=== PATIENT | male | born 1980 | race Hispanic/Latino ===

== ENCOUNTER 2021-05-16 11:52 | Emergency (ER) | payer OTHER ==
[2021-05-16 12:07] VITALS: BP 162/100
[2021-05-16] MEDS ORDERED: ASPIRIN 325 MG TAB PO ONE (12:07)
[2021-05-16] MEDS ORDERED: SODIUM CHLORIDE 0.9% 1000 ML 1,000 ML IV ONE (12:33)
--- NOTE | 2021-05-16 12:40 | Emergency Department Report ---
ED Abdominal Pain HPI - General Chief Complaint: Chest Pain Stated Complaint: ABD,CHEST,BACK PAIN Time Seen by Provider: 05/16/21 12:22 Source: patient Mode of arrival: Ambulatory Limitations: No Limitations - History of Present Illness Initial Comments: 40-year-old male with a past medical history of chronic back pain currently on Subutex presents to the hospital with complaints of constipation x2 weeks and abdominal pain x3 weeks. Patient reports that pain impression abdomen is currently chest discomfort the last 3 days. Pain is moderate and worse with palpation. No alleviating factors patient has been drinking plenty of water and trying a variety of [id number] laxatives without significant improvement. He has had liquid stool output without significant relief. No reports of nausea, vomiting, or fever. Previous history of right surgical hernia repair. Patient has noticed a small swelling to umbilicus area x1 month. He denies a history of hypertension Patient is seen by infectious disease doctor Dr. 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 Recurrent buttock abscess with fistula ED Physical Exam - General Limitations: No Limitations - Other Other exam information: General: No acute distress Head: Atraumatic Eyes: normal appearance ENT: Moist mucous membranes Neck: Normal appearance, no midline tenderness Chest: Clear to auscultation bilaterally CV: Regular rate and rhythm Abdomen: Soft, normal bowel sounds, reducible small supraumbilical hernia, generalized tenderness greatest in lower abdomen. No rebound or guard Back: Diffuse lumbar tenderness, pain with movement Extremity: Normal inspection, full range of motion Neuro: Alert O x 3, no facial asymmetry, speech clear, no gross motor sensory deficit Psych: Appropriate behavior Skin: No rash ED Course Vital Signs 05/16/21 12:05 Temperature 98.5 F Pulse Rate 81 Respiratory 20 Rate Blood Pressure 162/100 [Right] O2 Sat by Pulse 100 Oximetry - Reevaluation(s) Reevaluation #1: 05/16/21 13:39 Delay in patient's work-up and evaluation. He has refused lab stating that he had normal labs performed by Dr. Jang office. He was informed that we do not have access to Dr. Barreto's labs. He was informed he can attempt to have the results faxed to us for review otherwise his work-up is currently on hold 05/16/21 14:24 at this time I still have not received lab results form his doctor. I canceled IV contrast ct and ordered noncontrast ct at this time since we are unable to verify pt's renal function ED Medical Decision Making - EKG Data -: EKG Interpreted by Me EKG shows normal: sinus rhythm, ST-T waves (Early repole no ST elevation) Rate: normal (67) - EKG Data When compared to previous EKG there are: previous EKG unavailable - Radiology Data Radiology results: report reviewed CT ABDOMEN AND PELVIS WITHOUT CONTRAST INDICATION / CLINICAL INFORMATION: abd pain, no bowel movement. TECHNIQUE: Axial CT images were obtained through the abdomen and pelvis without IV contrast. All CT scans at this location are performed using CT dose reduction for ALARA by means of automated exposure control. COMPARISON: None available. FINDINGS: LOWER CHEST: No significant abnormality LIVER: No significant abnormality GALLBLADDER/BILIARY TREE: No significant abnormality PANCREAS: No significant abnormality SPLEEN: No significant abnormality ADRENALS: No significant abnormality KIDNEYS / URETER: No significant abnormality URINARY BLADDER: No significant abnormality REPRODUCTIVE ORGANS: No significant abnormality STOMACH / BOWEL: Small bowel is normal in caliber. The colon is unremarkable. No evidence of appendicitis. LYMPH NODES: No significant adenopathy. VASCULATURE: No significant abnormality. OTHER: No free air, free fluid, or focal fluid collection is identified. SKELETAL SYSTEM: No acute osseous findings. 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 IMPRESSION: No acute abnormality of the abdomen or pelvis. No evidence of bowel obstruction or localized inflammation. - Medical Decision Making 40-year-old male presents to the hospital complaints likely narcotic induced constipation treated with laxatives followed by watery diarrhea and abdominal pain. Prolonged ED stay while awaiting lab patient refused. Then we were awaiting for patient's recent lab results from several days ago to be faxed over since patient refused repeat blood draw. Explained to patient that we prefer same-day labs given patient's ED presentation for an acute problem. I obtain CT abdomen pelvis without contrast which is not reveal any acute abnormality. Patient still declines blood work at this time and return if symptoms worsen therefore be discharged and encouraged to take medication for gas ex for gas r elief Critical Care Time: No Critical care attestation.: If time is entered above; I have spent that time in minutes in the direct care of this critically ill patient, excluding procedure time. ED Disposition Clinical Impression: Abdominal pain, Diarrhea, Stimulant laxative causing adverse effect in thera peutic use, Constipation due to opioid therapy Disposition: 01 HOME / SELF CARE / HOMELESS Is pt being admited?: No Does the pt Need Aspirin: No Condition: Stable Instructions: Diarrhea, Adult, [id number], Abdominal Pain, Adult, [id number] Additional Instructions: Follow-up with your doctor or doctor/clinic provided. Return if symptoms worsen as indicated by your discharge instructions. Referrals: your, Doctor [Other] - 3-5 Days Time of Disposition: 15:55
--- NOTE | 2021-05-16 14:57 | Cat Scan Report ---
CT ABDOMEN AND PELVIS WITHOUT CONTRAST INDICATION / CLINICAL INFORMATION: abd pain, no bowel movement. TECHNIQUE: Axial CT images were obtained through the abdomen and pelvis without IV contrast. All CT scans at this location are performed using CT dose reduction for ALARA by means of automated exposure control. COMPARISON: None available. FINDINGS: LOWER CHEST: No significant abnormality LIVER: No significant abnormality GALLBLADDER/BILIARY TREE: No significant abnormality PANCREAS: No significant abnormality SPLEEN: No significant abnormality ADRENALS: No significant abnormality KIDNEYS / URETER: No significant abnormality URINARY BLADDER: No significant abnormality REPRODUCTIVE ORGANS: No significant abnormality STOMACH / BOWEL: Small bowel is normal in caliber. The colon is unremarkable. No evidence of appendic itis. LYMPH NODES: No significant adenopathy. VASCULATURE: No significant abnormality. OTHER: No free air, free fluid, or focal fluid collection is identified. SKELETAL SYSTEM: No acute osseous findings. 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 IMPRESSION: No acute abnormality of the abdomen or pelvis. No evidence of bowel obstruction or localized inflamma tion. Signer Name: Ventura Watts MD Signed: 05/16/2021 2:52 PM Workstation Name: [id number]
--- NOTE | 2021-05-17 10:20 | Electrocardiograph Report ---
[facility] Test Date: 2021-05-16 Test Time: 12:17:34 Pat Name: MARS FREGOSO III Department: Room: Gender: M Contracting Engineer: MARIO : 1980 Requested By: MITRA OLIVO Order Number: [id number] Reading MD: Seymour Sadler Measurements Intervals [place] Rate: 67 P: 63 NE: 182 QRS: -42 QRSD: 104 T: 38 QT: 393 QTc: 415 Interpretive Statements Sinus rhythm Left axis deviation ST elev, probable normal early repol pattern No previous ECG available for comparison Electronically Signed On 05-17-2021 10:20:15 EST by Seymour Sadler
== END 2021-05-16 19:08 | disposition home or self-care (01) ==
LOC: ED 11:52
DX: R19.7 Diarrhea, unspecified (principal); R10.9 Unspecified abdominal pain; K59.09 Other constipation; Z98.890 Other specified postprocedural states; T47.2X5A Adverse effect of stimulant laxatives, initial encounter
CPT/HCPCS: 74176; 93005; 93010; 96360; 99283